=== PATIENT | female | born 1955 | race Caucasian/White ===

== ENCOUNTER → 2016-12-03 | Outpatient (CLI) | payer OTHER ==
[~2016-12-03] MED LIST: ACETAMINOPHEN650 M1 PO; ASPIRIN81 M2 PO; CALCIUM + D 6001 TA1 PO; CALCIUM1 TAB.CHEW PO; CALTRATE PLUS T1 TAB PO; CENTRUM SILVER PO; CENTRUM SILVER1 EAC1 PO; CITRACAL + D CA1 TA1 PO; COUMADIN PO; DOCUSATE SODIU100 MG PO; FISH OIL 1,0001 EAC3 PO; FISH OIL 1,2001 EAC3 PO; LOVAZA PO; MULTI-VITAMIN1 TAB PO; NORCO1 TAB 10/3 PO; OXYCODONE HCL5 M1 PO; PREVACID PO; REMERON PO; ST JOSEPH ASPIR81 M1 PO; VITAMIN C100 MG PO; VITAMIN C500 M7 PO; WELLBUTRIN PO; XANAX0.5 M1 PO; ZOLOFT100 MG PO; ZOLOFT50 MG PO
--- NOTE | ~2016-12-03 | CT55 ---
[facility] A Service of [facility] & [facility] RADIOLOGY TEXT RESULTS PATIENT: RJ METCALF LOCATION: [facility] : 57 UNIT #: [id number] AGE: [address]: David Castaneda MD SEX: F ORDER DR: [id number] [facility]. [place], [place] [address] [id number] O MR#: [id number] Acc #: [id number] NAME: RJ METCALF : 1955 SEX: F STUDY DATE/TIME: 12/03/2016 10:13 UNIT: [facility] ROOM: STUDY DESCRIPTION: CT Chest W Con Attending Physician: David Castaneda M.D. Referring Physician: David Castaneda M.D. Ordering Physician: David Castaneda M.D. Primary Care Physician: Reymundo Gil M.D. MEDICAL IMAGING REPORT This report is preliminary unless electronic signature is present EXAM CT chest with contrast. INDICATION Restaging lung cancer. Observation for metastatic disease. Shortness of air for the past 2 weeks. PROCEDURE Contrast-enhanced CT of the chest, 70 mL of Isovue-370. This CT exam was performed with one or more of the following radiation dose reduction techniques: automatic exposure control, adjustment of mA and/or kV according to patient size, and iterative reconstruction. COMPARISON 08/17/2016 FINDINGS Redemonstration of extensive pleural-based metastatic disease in the right hemithorax. An index nodule along the anterior right mediastinal margin measures up to 1.7 cm, previously 1.3 cm. A dominant nodule in the right middle lobe measures 3.4 x 2.0, previously 2.6 x 1.9 cm. Right hilar mass is more extensive now measuring up to 4.4 cm, previously 3.7 cm. There is encasement of the right perihilar and right upper lobe bronchovascular structures. Left lung is clear. Abnormal soft tissue extending from the right hilum into the mediastinum is minimally increased. Probable new lesion in the right lobe measures 1.5 cm. No aggressive-appearing bone lesion. [facility] A Service of [facility] & [facility] RADIOLOGY TEXT RESULTS PATIENT: RJ METCALF [facility] 57 UNIT #: [id number] AGE: [address]: David Castaneda MD SEX: F ORDER DR: IMPRESSION 1. Interval progression of right hemithorax pleural-based and right hilar metastatic disease. 2. New hepatic metastatic disease. Dictated by... Reza Can M.D. THIS IS AN ELECTRONICALLY VERIFIED REPORT Reza Can M.D. at 12/04/2016 7:07 AM NORRIS/lily TD: 12/03/2016 14:42 JOB #: [id number] MEDICAL IMAGING REPORT Page 1 of 1 COPY
[2016-12-03 15:11] LABS: POC - CREATININE 0.85 mg/dL (0.44-1.03); POC - GFR >60.0 mL/min (>60)
== END | disposition home or self-care (01) ==
LOC: CCAT 09:39
PROVIDERS: Internal Medicine Medical Oncology
DX: C34.91 Malignant neoplasm of unspecified part of right bronchus or lung (principal); D61.818 Other pancytopenia
CPT/HCPCS: 71260; 82565; Q9967

== ENCOUNTER → 2017-02-15 | Outpatient (CLI) | payer OTHER ==
--- NOTE | ~2017-02-15 | CT55 ---
[facility] A Service of [facility] & [facility] RADIOLOGY TEXT RESULTS PATIENT: RJ METCALF LOCATION: [facility] : 57 UNIT #: [id number] AGE: [address]: David Castaneda MD SEX: F ORDER DR: [id number] [facility] [address]. [place], [place] [address] [id number] O MR#: [id number] Acc #: [id number] NAME: RJ METCALF : 1955 SEX: F STUDY DATE/TIME: 02/15/2017 16:55 UNIT: [facility] ROOM: STUDY DESCRIPTION: CT Chest W Con Attending Physician: David Castaneda M.D. Referring Physician: David Castaneda M.D. Ordering Physician: David Castaneda M.D. Primary Care Physician: Reymundo Gil M.D. MEDICAL IMAGING REPORT This report is preliminary unless electronic signature is present EXAM CT scan of the chest with contrast INDICATIONS Lung cancer, follow up restaging. Right shoulder pain for 2-3 days. Ongoing shortness of air. COMPARISON 12/03/2016 TECHNIQUE Axial 5-mm images were obtained through the chest with contrast. The patient was given 100 mL of Isovue-370. This CT exam was performed with one or more of the following radiation dose reduction techniques: Automatic exposure control, adjustment of mA and/or kV according to patient size, and iterative reconstruction. FINDINGS There is extensive pleural metastasis in the right lung. There are innumerable pleural-based nodular areas not only along the pleural surface peripherally but also along the major fissure. Most of these are about 1 cm in thickness. One of the larger ones in the medial anterior chest measures 3.7 x 2.5 cm. It is slightly larger than on the prior study when it was 2.9 x 1.9 cm. One of the nodules along the major fissure in the right lung is now 2 cm in size, whereas before it was 14 mm in size. No left lung nodules are identified. There are at least 10 hepatic metastases visible and they have increased slightly in number and size. There is 1 in the left lobe that has gone from 19 mm up to 26 mm that is now causing a bulge along the anterior margin of the liver. The adrenal glands are normal. The bones are normal. IMPRESSION 1. There is extensive pleural-based nodular metastatic disease [facility] A Service of [facility] & [facility] RADIOLOGY TEXT RESULTS PATIENT: RJ METCALF LOCATION: [facility] : 57 UNIT #: [id number] AGE: [address]: David Castaneda MD SEX: F ORDER DR: throughout the right lung and there has been a slight increase in size of some of the larger lesions. There has certainly been no regression in any of the lesions. 2. The amount of metastatic disease within the liver has clearly increased in size, with increase in the number and size of the metastatic deposits. Dictated by... Danny Eubanks M.D. THIS IS AN ELECTRONICALLY VERIFIED REPORT Danny Eubanks M.D. at 02/17/2017 7:08 AM JOHAN/tanya TD: 02/16/2017 22:04 JOB #: [id number] MEDICAL IMAGING REPORT Page 1 of 1 COPY
[2017-02-15 17:36] LABS: POC - CREATININE 1.03 mg/dL (0.44-1.03)
== END | disposition home or self-care (01) ==
LOC: CCAT 16:05
PROVIDERS: Internal Medicine Medical Oncology
DX: C34.91 Malignant neoplasm of unspecified part of right bronchus or lung (principal); D61.818 Other pancytopenia; C78.7 Secondary malignant neoplasm of liver and intrahepatic bile duct
CPT/HCPCS: 71260; 82565; Q9967